=== PATIENT | male | born 1975 | race Caucasian/White ===

== ENCOUNTER 2025-01-06 17:32 | Emergency (ER) | payer BC ==
[~2025-01-06] VITALS: Ht 180.3 cm; Wt 133.5 kg
[2025-01-06 17:40] VITALS: BP 175/103; PULSE 88; RESP 18; TEMP 98.1; O2SAT 97
[2025-01-06] MEDS ORDERED: AMOX-117 PO (18:49)
[2025-01-06] MEDS: TETanus/Pertussis (Acell)/Diphther VAC/PF (Tdap-Adult) 0.5ml syringe IMVAC ONE (19:04)
== END 2025-01-06 19:10 | disposition home or self-care (01) ==
LOC: ER 17:33
DX: S70.372A Other superficial bite of left thigh, initial encounter (principal); Z23 Encounter for immunization; W54.0XXA Bitten by dog, initial encounter; Y93.89 Activity, other specified; Y92.89 Other specified places as the place of occurrence of the external cause; Y99.8 Other external cause status
CPT/HCPCS: 90471; 90715; 99283

== ENCOUNTER 2025-01-08 17:20 | Emergency (ER) | payer BC ==
[~2025-01-08] VITALS: Ht 172.7 cm; Wt 93.7 kg
[~2025-01-08 17:20] MED LIST: AMOX-117 PO
[2025-01-08 17:50] VITALS: BP 124/86; PULSE 82; RESP 18; O2SAT 98
[2025-01-08] MEDS: rabies vaccine (PCEC)/PF 2.5 unit kit IMVAC ONE (19:04)
[2025-01-08 19:11] VITALS: TEMP 97.8
== END 2025-01-08 19:12 | disposition home or self-care (01) ==
LOC: ER 17:20
DX: S70.312A Abrasion, left thigh, initial encounter (principal); Z20.3 Contact with and (suspected) exposure to rabies; Z23 Encounter for immunization; W54.0XXA Bitten by dog, initial encounter; Y93.89 Activity, other specified; Y92.89 Other specified places as the place of occurrence of the external cause; Y99.8 Other external cause status; Z88.0 Allergy status to penicillin
CPT/HCPCS: 90471; 90675; 99283